=== PATIENT | female | born 1960 | race Caucasian/White ===

== ENCOUNTER 2017-12-20 20:23 | Emergency (ER) | payer BC, OTHER ==
[2017-12-20] MEDS ORDERED: PANTOPRAZOLE SODIUM IV 40 MG VIAL IV ONE (20:35)
[2017-12-20] MEDS ORDERED: GLUCAGON INJ 1 MG VIAL IV ONE (20:35)
[2017-12-20] MEDS ORDERED: methylPREDNISolone SODIUM SUC 125 MG/2 ML VIAL IV ONE (20:35)
[2017-12-20] MEDS ORDERED: GLUCAGON INJ 1 MG VIAL ONE (20:40)
[2017-12-20] MEDS ORDERED: methylPREDNISolone SODIUM SUC 125 MG/2 ML VIAL ONE (20:43)
[2017-12-20] MEDS ORDERED: PANTOPRAZOLE SODIUM IV 40 MG VIAL ONE (20:44)
--- NOTE | 2017-12-20 20:44 | ED.PDOC ---
History of Present Illness - General Chief Complaint: Respiratory Problem Stated Complaint: Feels throat closing Time Seen by Provider: 12/20/17 20:34 Source: patient Exam Limitations: other - limited the patient is a poor historian. - History of Present Illness Comments: THIS PATIENT COMES TO THE ED WITH DROOLING, WAS EATING SOME CHICKEN AND CHOKED. NOW COUGHING AND DROOLING. THE PATIENT IS A POOR HISTORIAN AND SEEMS VERY ANXIOUS. SHE STATED THAT IT HAS NOTHING TO DO WITH THE FOOD AND THAT SHE HAS ACUTE SWELLING OF THE ESOPHAGUS. ACCORDING TO THE PATIENT STEROIDS SEEM TO HELP HER WHEN THIS HAS OCCURRED. SHE GIVES LITTLE INFORMATION, VOICES THAT LAST TIME SHE HAD THIS SHE WAITED 90 MINUTES HERE AND THEN HAD TO BE SEEN AT A [facility] IN [place], [place]. THERE SHE RECEIVED TWO SHOTS AND GOT BETTER. WILL NOT SAY IF SHE HAS EVER BEEN SCOPED AND IF SHE HAS EVER SEEN A [employer]. THE PATIENT IS ACTING IF SHE HAS AN ESOPHAGEAL FB. SHE IS VERY ANXIOUS. Timing/Duration: just prior to arrival Cough Quality/Degree: dry cough Possible Cause: occasional episodes Improving Factors: nothing Worsening Factors: nothing Associated Symptoms: denies symptoms Allergies/Adverse Reactions: Allergies NO KNOWN ALLERGY Allergy (Verified 04/24/14 21:18) Home Medications: Ambulatory Orders Lansoprazole [Prevacid] 30 mg PO BEDTIME #30 cap 12/20/17 Review of Systems - Review of Systems Constitutional: States: no symptoms reported EENTM: States: no symptoms reported Respiratory: States: no symptoms reported Cardiology: States: no symptoms reported Gastrointestinal/Abdominal: States: nausea, vomiting, other - DROOLING Musculoskeletal: States: no symptoms reported Skin: States: no symptoms reported Neurological: States: no symptoms reported Endocrine: States: no symptoms reported Hematologic/Lymphatic: States: no symptoms reported All other Systems: Reviewed and Negative Past Medical History (General) - Patient Medical History Hx Seizures: No Hx Stroke: No Hx Dementia: No Hx Asthma: No Hx of COPD: No Hx Cardiac Disorders: No Hx Congestive Heart Failure: No - Vaccination History Hx Tetanus, Diphtheria Vaccination: No Hx Influenza Vaccination: No Hx Pneumococcal Vaccination: No - Social History Hx Tobacco Use: No Hx Alcohol Use: No Hx Substance Use: No Hx Substance Use Treatment: No Hx Depression: Yes - Female History Patient : No Family Medical History - Family History Mother Family History: Unknown Physical Exam - Physical Exam General Appearance: Alert, Anxious, Well Developed, Well Hydrated Eye Exam: bilateral normal ENT Exam: normal ENT inspection Respiratory: chest non-tender, lungs clear, normal breath sounds, no respiratory distress, no accessory muscle use Cardiovascular/Chest: normal peripheral pulses, regular rate, rhythm, no edema, no gallop, no JVD, no murmur Gastrointestinal/Abdominal: non tender, soft, no organomegaly Extremity: normal range of motion, non-tender, normal inspection Neurologic: no motor/sensory deficits, alert, oriented x 3 Skin Exam: normal color, warm/dry Lymphatic: no adenopathy Progress - Results/Orders Results/Orders: MUCH IMPROVED AFTER GLUCAGON. SHE IS LESS ANXIOUS SND NOW VOICES THAT [facility]. SGE WAS SCOPED AND DILATED. SO EVIDENTLY SHE HAS HAD A STRICTURE. Departure - Departure Clinical Impression: Esophagus, foreign body Qualifiers: Encounter type: initial encounter Qualified Code(s): T18.108A - Unspecified foreign body in esophagus causing other injury, initial encounter Time of Disposition: 21:10 Disposition: Discharge to Home or Self Care Condition: Good Departure Forms: ED Discharge - Pt. Copy, Patient Portal Self Enrollment Instructions: Foreign Body, Swallowed, Adult (DC) Prescriptions: Lansoprazole [Prevacid] 30 mg PO BEDTIME #30 cap Home Medications: Ambulatory Orders Lansoprazole [Prevacid] 30 mg PO BEDTIME #30 cap 12/20/17
[2017-12-20 20:57] VITALS: BP 153/82; TEMP 98.8; O2SAT 100
== END 2017-12-20 21:24 | disposition home or self-care (01) ==
LOC: ER 20:23
DX: T18.108A Unspecified foreign body in esophagus causing other injury, initial encounter (principal); R11.2 Nausea with vomiting, unspecified; F32.9 Major depressive disorder, single episode, unspecified
CPT/HCPCS: J1610; J2930